=== PATIENT | female | born 1980 | race Caucasian/White ===

== ENCOUNTER 2020-02-27 12:27 | Emergency (ER) | payer BC ==
--- NOTE | 2020-02-27 12:31 | PDOC ---
History of Present Illness - General Chief Complaint: Pain Stated Complaint: ABD PAIN Time Seen by Provider: 02/27/20 12:31 History Source: Patient Exam Limitations: Language Barrier (khmer, used house designer) - History of Present Illness Initial Comments: 02/27/20 13:07 HPI: This is a 39 y/o female with a PMH of anemia and gastritis non-compliant with medication presenting to the ED because of burning/sharp epigastric pain radiating to her left chest and left arm accompanied by left arm numbness. The pain has been occurring every day for the past 6 weeks, and starts in the morning. The pain is worse after she eats, and she hasn't been eating as a result. She saw a GI but doesn't remember who it was, and says she stopped taking the medication because she couldn't afford it. The pain is accompanied by a headache, nausea, no vomiting and her last bowel movement was yesterday. She denies lightheadedness, diarrhea, constipation, or diaphoresis. ROS: GENERAL/CONSTITUTIONAL: No fever/chills. No weakness. HEAD, EYES, EARS, NOSE AND THROAT: No change in vision. No ear pain or discharge. No sore throat. CARDIOVASCULAR: Yes chest pain or shortness of breath. RESPIRATORY: No cough, wheezing, or hemoptysis. GASTROINTESTINAL: Yes nausea. No vomiting, diarrhea or constipation. GENITOURINARY: Yes dysuria, frequency, or change in urination. MUSCULOSKELETAL: Pain in between her shoulder blades NEUROLOGIC: Yes headache. Yes numbness in her left arm. HEMATOLOGIC/LYMPHATIC: Yes anemia. No history of blood clots. PMH: Gastritis, anemia PSx: , tubal ligation Social Hx: Denied tobacco, daily wine, and has been taking sips of moonshine for her abdominal pain Meds: Denied Allergies: Denied PE: GENERAL: Awake, alert, and fully oriented, laying in bed in some distress holding her stomach. HEAD: No signs of trauma EYES: PERRL, EOMI ENT: Nares patent, Moist mucosa NECK: Normal ROM, supple, no lymphadenopathy, JVD, or masses LUNGS: Breath sounds equal, clear to auscultation bilaterally. No wheezes, and no crackles HEART: Regular rate and rhythm, normal S1 and S2, no murmurs, rubs or gallops ABDOMEN: Soft, tender in epigastric region and RUQ, normoactive bowel sounds. No guarding, no rebound. No masses EXTREMITIES: Normal range of motion, no edema. No clubbing or cyanosis. No cords, erythema, or tenderness NEUROLOGICAL: Cranial nerves II through XII grossly intact. Normal speech. No weakness or loss of sensation in bilateral arms and legs. SKIN: Warm, Dry, normal turgor, no rashes or lesions noted. 02/27/20 13:20 MDM: This is a 39 y/o female with a PMH of gastritis non-compliant with medication presenting to the ED because of burning/sharp epigastric pain radiating to her left chest and left arm accompanied by left arm numbness. ddx: r/o acs vs gastritis vs pancreatitis vs biliary vs peptic ulcer - Pain lasts for hours and has been everyday for 6 weeks so less likely cardiac. Will get a troponin - No focal neurological deficits - Acetaminophen for headache, zofran for nausea, famotidine and Maalox for deanna ritis - CBC - CMP - lipase - CXR - UA 02/27/20 15:05 CBC WBC 4.2 K/mm3 (4.0-10.0) 02/27/20 12:51 RBC 3.60 M/mm3 (3.60-5.2) 02/27/20 12:51 Hgb 10.1 GM/dL (10.7-15.3) L 02/27/20 12:51 Hct 31.8 % (32.4-45.2) L 02/27/20 12:51 MCV 88.4 fl (80-96) 02/27/20 12:51 MCH 28.2 pg (25.7-33.7) 02/27/20 12:51 MCHC 31.9 g/dl (32.0-36.0) L 02/27/20 12:51 RDW 13.6 % (11.6-15.6) 02/27/20 12:51 Plt Count 238 K/MM3 (134-434) 02/27/20 12:51 MPV 8.2 fl (7.5-11.1) 02/27/20 12:51 Absolute Neuts (auto) 2.5 K/mm3 (1.5-8.0) 02/27/20 12:51 Neutrophils % 59.8 % (42.8-82.8) 02/27/20 12:51 Lymphocytes % 25.8 % (8-40) 02/27/20 12:51 Monocytes % 8.6 % (3.8-10.2) 02/27/20 12:51 Eosinophils % 4.1 % (0-4.5) 02/27/20 12:51 Basophils % 1.7 % (0-2.0) 02/27/20 12:51 Nucleated RBC % 0 % (0-0) 02/27/20 12:51 No leukocytosis. Known anemia. CMP Sodium 137 mmol/L (136-145) 02/27/20 12:51 Potassium 3.9 mmol/L (3.5-5.1) 02/27/20 12:51 Chloride 103 mmol/L (98-107) 02/27/20 12:51 Carbon Dioxide 24 mmol/L (21-32) 02/27/20 12:51 Anion Gap 10 MMOL/L (8-16) 02/27/20 12:51 BUN 9.3 mg/dL (7-18) 02/27/20 12:51 Creatinine 0.5 mg/dL (0.55-1.3) L 02/27/20 12:51 Est GFR (CKD-EPI)AfAm 139.33 02/27/20 12:51 Est GFR (CKD-EPI)NonAf 120.22 02/27/20 12:51 Random Glucose 85 mg/dL (74-106) 02/27/20 12:51 Calcium 9.4 mg/dL (8.5-10.1) 02/27/20 12:51 Total Bilirubin 1.0 mg/dL (0.2-1) 02/27/20 12:51 AST 165 U/L (15-37) H 02/27/20 12:51 ALT 80 U/L (13-61) H 02/27/20 12:51 Alkaline Phosphatase 72 U/L (45-117) 02/27/20 12:51 Troponin I < 0.02 ng/ml (0.00-0.05) 02/27/20 12:51 Total Protein 7.4 g/dl (6.4-8.2) 02/27/20 12:51 Albumin 4.0 g/dl (3.4-5.0) 02/27/20 12:51 Lipase 95 U/L (73-393) 02/27/20 12:51 Serum , Qual Negative 02/27/20 12:51 Troponin negative Elevated liver enzymes. AST>ALT - Likely due to hx of frequent Urine Test Results Urine Color Yellow 02/27/20 15:20 Urine Appearance Clear 02/27/20 15:20 Urine pH >= 9.0 (5.0-8.0) H 02/27/20 15:20 Ur Specific [place] 1.022 (1.010-1.035) 02/27/20 15:20 Urine Protein Negative (NEGATIVE) 02/27/20 15:20 Urine Glucose (UA) Negative (NEGATIVE) 02/27/20 15:20 Urine Ketones 2+ (NEGATIVE) H 02/27/20 15:20 Urine Blood Negative (NEGATIVE) 02/27/20 15:20 Urine Nitrite Negative (NEGATIVE) 02/27/20 15:20 Urine Bilirubin Negative (NEGATIVE) 02/27/20 15:20 Ur Leukocyte Esterase Negative (NEGATIVE) 02/27/20 15:20 No sign of infection - Pt symptoms impoved with Maalox, famotidine, acetaminophen and zofram - Will follow-up with her GI as an outpatient - She understand the return precautions. Past History - Medical History Allergies/Adverse Reactions: Allergies Allergy/AdvReac Type Severity Reaction Status Date / Time No Known Allergies Allergy Verified 02/27/20 12:54 Heart Score/ECG Review - History History: Slightly suspicious - Electrocardiogram EKG: Normal - Age Age: </= 45 - Risk Factors Based on the list above the patient has:: No risk factors known - ECG Intrepretation Comment:: 02/27/20 13:[address] elevations or T wave inversions. Normal sinus rhythm. Vent rate 73bpm, ME interval 122ms, QRS duration 86ms, QT/QTc 418/460ms. Unchanged from EKG 1.5 hours prior at [facility]. ED Treatment Course - LABORATORY CBC & Chemistry Diagram: 02/27/20 12:51 02/27/20 12:51 Discharge - Discharge Information Problems reviewed: Yes Clinical Impression/Diagnosis: Chest discomfort, Epigastric abdominal pain Abdominal pain Qualifiers: Abdominal location: epigastric Qualified Code(s): R10.13 - Epigastric pain Condition: Improved Disposition: HOME - Admission No - Follow up/Referral - Patient Discharge Instructions Patient Printed Discharge Instructions: DI for Gastritis Additional Instructions: You were seen in the ED today because of abdominal pain. We gave you fluids, pepcid, zofran, and maalox and your symptoms improved. Follow-up with your server administrator in the next week. We advise stopping any alcohol as it is probably making your symptoms worse. What you can do at home: You can take over the counter Pepcid 10mg twice a day as needed. You can take over the counter Maalox 10-20ml 4x per day with a maximum of 80mL per 24 hours. Please return to the ED if you start vomiting and cannot keep fluids down, if your pain gets worse, or if you have any new or concerning symptoms. - Post Discharge Activity
[2020-02-27 12:54] VITALS: BMI 23.3
[2020-02-27] MEDS ORDERED: FAMOTIDINE 20 MG/50 ML IVPB 20 MG/50 ML MG IVPB ONE ×2 (12:55→14:02)
[2020-02-27] MEDS ORDERED: ONDANSETRON 4 MG/2 ML VIAL IVPUSH ONE (12:55)
[2020-02-27] MEDS ORDERED: ACETAMINOPHEN 1000 MG/100 ML VIAL (NON FORMULARY) IVPB ONE (12:55)
[2020-02-27] MEDS ORDERED: SODIUM CHLORIDE 0.9% 500 ML INFUS.BAG IV ONE (12:55)
[2020-02-27] MEDS ORDERED: MAG HYDROX/AL HYDROX/SIMETH 30 ML UNIT-DOSE CUP PO ONE (12:56)
[2020-02-27 13:28] LABS: BASO % 1.7 % (0-2.0); EOS % 4.1 % (0-4.5); HEMATOCRIT 31.8 % (32.4-45.2); HEMOGLOBIN 10.1 GM/dL (10.7-15.3); LYMPH % 25.8 % (8-40); MCH 28.2 pg (25.7-33.7); MCHC 31.9 g/dl (32.0-36.0); MEAN CELL VOLUME 88.4 fl (80-96); MEAN PLT VOLUME 8.2 fl (7.5-11.1); MONO % 8.6 % (3.8-10.2); NEUT % 59.8 % (42.8-82.8); PLATELET COUNT 238 K/MM3 (134-434); RDW 13.6 % (11.6-15.6); WHITE BLOOD COUNT 4.2 K/mm3 (4.0-10.0)
[2020-02-27] MEDS ORDERED: ACETAMINOPHEN INJECTION 100 ML IVPB ONE (14:02)
[2020-02-27] MEDS ORDERED: MAG HYDROX/AL HYDROX/SIMETH 30 ML UNIT-DOSE CUP ONE (14:02)
[2020-02-27 14:39] LABS: ALK PHOS 72 U/L (45-117); ANION GAP 10 MMOL/L (8-16); BLOOD UREA NITROGEN 9.3 mg/dL (7-18); CALCIUM 9.4 mg/dL (8.5-10.1); CHLORIDE 103 mmol/L (98-107); CO2 24 mmol/L (21-32); CREATININE 0.5 mg/dL (0.55-1.3); GLUCOSE,RANDOM 85 mg/dL (74-106); LIPASE 95 U/L (73-393); POTASSIUM 3.9 mmol/L (3.5-5.1); SGOT/AST 165 U/L (15-37); SGPT/ALT 80 U/L (13-61); SODIUM 137 mmol/L (136-145); TOT PROT 7.4 g/dl (6.4-8.2)
[2020-02-27 15:37] LABS: PH,URINE >= 9.0 (5.0-8.0); URINE APPEARANCE CLEAR; URINE BILIRUBIN NEGATIVE (NEGATIVE); URINE COLOR YELLOW; URINE GLUCOSE (UA) NEGATIVE (NEGATIVE); URINE KETONE 2+ (NEGATIVE); URINE LEUK ESTERASE NEGATIVE (NEGATIVE); URINE NITRITE NEGATIVE (NEGATIVE); URINE PROTEIN NEGATIVE (NEGATIVE)
[2020-02-27 16:39] VITALS: BP 127/68; PULSE 71; TEMP 98
--- NOTE | 2020-02-27 17:55 | PDOC ---
Documentation entered by Martha Solis SCRIBE, acting as scribe for Kendall Arias MD. Kendall Arias MD: This documentation has been prepared by the kalebeIrma Sydney, SCRIBE, under my direction and personally reviewed by me in its entirety. I confirm that the documentation accurately reflects all work, treatment, procedures, and medical decision making performed by me. Attending Attestation - Resident Resident Name: Dara Cisneros - ED Attending Attestation I have performed the following: I have examined & evaluated the patient, The case was reviewed & discussed with the resident, I agree w/resident's findings & plan, Exceptions are as noted - HPI HPI: 02/27/20 13:28 Patient is a 39 year old female with a significant past medical history of gastritis (non-compliant with medication) who presents to the ED with six weeks of epigastric pain. As per patient, her burning epigastric pain radiates to her left chest, arm, and a/w nausea. Patient notes her symptoms have been occurring every morning for the last six weeks, but then resolve over the course of the day. Patient states she has seen a senior systems engineer in the past, who prescribes her medication, but she has not been taking the medication. Pt notably has been taking moonshine as a medication for her pain as this is an swedish treatment. Denies dizziness, focal weakness/numbness, headache, shortness of breath, vomiting, diarrhea, constipation, or urinary changes. Allergies: NKDA - Physicial Exam PE: 02/27/20 16:38 GENERAL: Awake, alert, and fully oriented, in no acute distress EYES: PERRLA, EOMI, sclera anicteric, conjunctiva clear ENT: Oropharynx clear without exudates. Moist mucosa NECK: Normal ROM, supple, no lymphadenopathy, JVD, or masses LUNGS: Breath sounds equal, clear to auscultation bilaterally. No wheezes, and no crackles HEART: Regular rate and rhythm, normal S1 and S2, no murmurs, rubs or gallops ABDOMEN: Soft, nontender, normoactive bowel sounds. No guarding, no rebound. No masses EXTREMITIES: Normal range of motion, no edema. No clubbing or cyanosis. No cords, erythema, or tenderness NEUROLOGICAL: Normal speech, cranial nerves intact, equal strength and sensation b/l SKIN: Warm, Dry, normal turgor, no rashes or lesions noted. - Medical Decision Making 02/27/20 14:38 39-year-old female presents emergency department with 6 weeks of intermittent epigastric pain, burning in quality associated with intermittent radiation up the chest. Patient initially stating that pain radiates to her left arm, however on clarification she denies. She has not tried any medications. Vitals within normal limits. Exam within normal limits with no abdominal tenderness palpation. EKG is nonischemic. Differential includes gastritis versus GERD versus pancreatitis versus atypical ACS. Labs wnl. Pt reports pain has completely resolved with GI cocktail. She requests DC home Patient is clinically well-appearing. I discussed the physical exam findings, ancillary test results and final diagnoses with the patient. I answered all of the patient's questions. The patient was satisfied with the care received and felt comfortable with the discharge plan and treatment plan. The patient will call their primary care physician within 24 hours to arrange follow-up and will return to the Emergency Department with any new, persistent or worsening symptoms. Discharge - Discharge Information Problems reviewed: Yes Clinical Impression/Diagnosis: Chest discomfort, Epigastric abdominal pain Abdominal pain Qualifiers: Abdominal location: epigastric Qualified Code(s): R10.13 - Epigastric pain Condition: Improved Disposition: HOME - Follow up/Referral - Patient Discharge Instructions Patient Printed Discharge Instructions: DI for Gastritis Additional Instructions: You were seen in the ED today because of abdominal pain. We gave you fluids, pepcid, zofran, and maalox and your symptoms improved. Follow-up with your senior systems engineer in the next week. We advise stopping any alcohol as it is probably making your symptoms worse. What you can do at home: You can take over the counter Pepcid 10mg twice a day as needed. You can take over the counter Maalox 10-20ml 4x per day with a maximum of 80mL per 24 hours. Please return to the ED if you start vomiting and cannot keep fluids down, if your pain gets worse, or if you have any new or concerning symptoms. - Post Discharge Activity
--- NOTE | 2020-02-28 10:45 | EKG ---
Test Reason : Blood Pressure : / mmHG Vent. Rate : 073 BPM Atrial Rate : 073 BPM P-R Int : 122 ms QRS Dur : 086 ms QT Int : 418 ms P-R-T Axes : 063 013 038 degrees QTc Int : 460 ms NORMAL SINUS RHYTHM NORMAL ECG NO PREVIOUS ECGS AVAILABLE Confirmed by Rebel Gonzalez ([id number]) on 02/28/2020 10:45:00 AM Referred By: Confirmed By:Rebel Gonzalez
== END 2020-02-27 16:40 | disposition home or self-care (01) ==
LOC: JER 12:27
PROC: 3E0333Z Introduction of Anti-inflammatory into Peripheral Vein, Percutaneous Approach (ICD-10-PCS; principal; 2020-02-27)
PROC: 3E033GC Introduction of Other Therapeutic Substance into Peripheral Vein, Percutaneous Approach (ICD-10-PCS; 2020-02-27)
DX: R10.13 Epigastric pain (principal); R07.9 Chest pain, unspecified
CPT/HCPCS: 36415; 71045-TC-FY; 80053; 81003; 83690; 84484; 84703; 85025; 87077; 87086; 87186; 93005; 93010; 99285-25; J0131

== ENCOUNTER 2020-04-03 15:04 | Emergency (ER) | payer BC ==
[2020-04-03 15:14] VITALS: BP 123/77; PULSE 77; BMI 18.6
--- NOTE | 2020-04-03 16:09 | PDOC ---
History of Present Illness - General Chief Complaint: Pain Stated Complaint: ABD PAIN Time Seen by Provider: 04/03/20 15:50 History Source: Patient Exam Limitations: No Limitations Past History - Travel History Traveled outside of the country in the last 30 days: No Close contact w/someone who was outside of country & ill: No - Medical History Allergies/Adverse Reactions: Allergies Allergy/AdvReac Type Severity Reaction Status Date / Time No Known Allergies Allergy Verified 04/03/20 15:10 Home Medications: Ambulatory Orders NK [No Known Home Medication] 04/03/20 COPD: No GI Disorders: Yes (gerd) - Reproductive History Is Patient Now?: No - Psycho-Social/Smoking History Smoking History: Never smoked Review of Systems - Review of Systems Able to Perform ROS?: Yes Comments:: 04/03/20 19:06 CONSTITUTIONAL: Absent: fever, chills, diaphoresis, generalized weakness, malaise, loss of appetite HEENT: Absent: rhinorrhea, nasal congestion, throat pain, throat swelling, difficulty swallowing, mouth swelling, ear pain, eye pain, visual Changes CARDIOVASCULAR: Absent: chest pain, loss of consciousness, palpitations, irregular heart rate, peripheral edema RESPIRATORY: Absent: cough, shortness of breath, dyspnea with exertion, orthopnea, wheezing, stridor, hemoptysis GASTROINTESTINAL: Present: R sided abdominal pain Absent: abdominal distension, nausea, vomiting, diarrhea, constipation, melena, hematochezia GENITOURINARY: Absent: dysuria, frequency, urgency, hesitancy, hematuria, flank pain, genital pain MUSCULOSKELETAL: Absent: myalgia, arthralgia, joint swelling SKIN: Absent: rash, itching, pallor HEMATOLOGIC/IMMUNOLOGIC: Absent: easy bleeding, easy bruising, lymphadenopathy, frequent infections ENDOCRINE: Absent: unexplained weight gain, unexplained weight loss, heat intolerance, cold intolerance NEUROLOGIC: Absent: headache, focal weakness or paresthesias, dizziness, unsteady gait, seizure, mental status changes, bladder or bowel incontinence PSYCHIATRIC: Absent: anxiety, depression, suicidal or homicidal ideation, hallucinations. Is the patient limited Serbian proficient: No *Physical Exam - Vital Signs Last Vital Signs Temp Pulse Resp BP Pulse Ox 77 18 123/77 99 04/03/20 15:06 04/03/20 15:06 04/03/20 15:06 04/03/20 15:06 - Physical Exam 04/03/20 19:07 GENERAL: Well developed, well nourished. Awake and alert. No acute distress. HEENT: Normocephalic, atraumatic. PERRLA, EOMI. No conjunctival pallor. Sclera are non- icteric. Moist mucous membranes. Oropharynx is clear. NECK: Supple. Full ROM. No lymphadenopathy. CARDIOVASCULAR: Regular rate and rhythm. Distal pulses are 2+ and symmetric. PULMONARY: No evidence of respiratory distress. Lungs clear to auscultation bilaterally. No wheezing, rales or rhonchi. ABDOMINAL: Soft. Non-tender. Non-distended. No rebound or guarding. No organomegaly. Norm oactive bowel sounds. MUSCULOSKELETAL Normal range of motion at all joints. No bony deformities or tenderness. No CVA tenderness. EXTREMITIES: No cyanosis. No clubbing. No edema. No calf tenderness. SKIN: Warm and dry. Normal capillary refill. No rashes. No jaundice. NEUROLOGICAL: Alert, awake, appropriate. Cranial nerves 2-12 intact. No deficits to light touch and temperature in face, upper extremities and lower extremities. No motor deficits in the in face, upper extremities and lower extremities. Normoreflexic in the upper and lower extremities. Normal speech. Toes are down-going bila terally. Gait is normal without ataxia. PSYCHIATRIC: Cooperative. Good eye contact. Appropriate mood and affect. Pelvic: External genitalia normal without lesions. Vaginal vault is clear without blood or discharge. Cervix is long and closed. Red ring noted on the cervix No cervical motion tenderness. Uterus is nontender and normal in size. Adnexa on L side tender, no R sided tenderness. ED Treatment Course - LABORATORY CBC & Chemistry Diagram: 04/03/20 17:05 04/03/20 17:05 Medical Decision Making - Medical Decision Making 04/03/20 19:08 Patient is a 39-year-old female with past medical history of kidney stones, presents the ER with right lower quadrant pain. She states that this problem is going on for the last 2 weeks. She states she was seen in our emergency dep artment and diagnosed with gastritis. She was also seen 2 days ago months of your also diagnosed with gastritis. She states that her right lower quadrant pain has gotten worse over the past week so she came to the ER for reevaluation. Denies fevers, chills, nausea, vomiting, dysuria, hematuria. Her last menstrual cycle ended on February 22. A/P: Right lower quadrant pain On physical exam patient is tender to the right lower quadrant however she also has pain in the abdomen. No Rovsing sign. Pelvic exam shows some left adnexal tenderness. There is also a red ring around the cervix. Genital culture taken. Basic labs show no leukocytosis. CMP within normal limits. Urine is clear. Transvaginal ultrasound ordered. We will repeat a CT scan as patient has worsening right lower quadrant tende rness. Disposal depending on imaging. Signout given to CATRACHITA Xiao. Discharge - Discharge Information Problems reviewed: Yes Clinical Impression/Diagnosis: Abdominal pain Qualifiers: Abdominal location: lower abdomen, unspecified Qualified Code(s): R10.30 - Lower abdominal pain, unspecified Ovarian cyst Qualifiers: Laterality: left Qualified Code(s): N83.202 - Unspecified ovarian cyst, left side Condition: Stable Disposition: HOME - Follow up/Referral Referrals: Pancho Garcia MD [Staff Physician] - Call tomorrow Maynor Escalona MD [Staff Physician] - Call tomorrow - Patient Discharge Instructions Patient Printed Discharge Instructions: DI for Abdominal Pain-Adult Additional Instructions: Please follow-up with a golf manager as soon as possible Please also follow-up with the physical design engineer as soon as possible Take ibuprofen every 6 hours as needed for pain Drink plenty of fluids. Return to the emergency room for any worsening symptoms - Post Discharge Activity Work/Back to School Note: Back to Work
[2020-04-03] MEDS ORDERED: ACETAMINOPHEN 1000 MG/100 ML VIAL (NON FORMULARY) IVPB ONE (16:10)
[2020-04-03] MEDS ORDERED: ONDANSETRON 4 MG/2 ML VIAL IVPUSH ONE (16:10)
[2020-04-03] MEDS ORDERED: SODIUM CHLORIDE 1,000 ML IV STA (16:10)
[2020-04-03] MEDS ORDERED: ACETAMINOPHEN INJECTION 100 ML IVPB ONE (16:35)
[2020-04-03 17:29] LABS: BASO % 1.3 % (0-2.0); HEMATOCRIT 32.3 % (32.4-45.2); HEMOGLOBIN 10.4 GM/dL (10.7-15.3); LYMPH % 36.7 % (8-40); MCH 27.4 pg (25.7-33.7); MCHC 32.3 g/dl (32.0-36.0); MEAN CELL VOLUME 84.9 fl (80-96); MEAN PLT VOLUME 9.2 fl (7.5-11.1); MONO % 6.8 % (3.8-10.2); NEUT % 47.2 % (42.8-82.8); PLATELET COUNT 184 K/MM3 (134-434); RBC 3.81 M/mm3 (3.60-5.2); WHITE BLOOD COUNT 5.4 K/mm3 (4.0-10.0)
[2020-04-03 17:35] LABS: INR 0.99 (0.83-1.09); PROTHROMBIN TIME (PATIENT) 11.7 SEC (9.7-13.0)
[2020-04-03 17:51] LABS: BILIRUBIN,TOTAL 0.4 mg/dL (0.2-1); BLOOD UREA NITROGEN 8.7 mg/dL (7-18); CALCIUM 8.9 mg/dL (8.5-10.1); CREATININE 0.6 mg/dL (0.55-1.3); POTASSIUM 3.9 mmol/L (3.5-5.1); TOT PROT 7.4 g/dl (6.4-8.2)
[2020-04-03 18:38] LABS: HCG,QUALITATIVE URINE Negative
[2020-04-03 18:49] LABS: PH,URINE 8.5 (5.0-8.0); URINE APPEARANCE Clear; URINE BILIRUBIN Negative (NEGATIVE); URINE COLOR Yellow; URINE GLUCOSE (UA) Negative (NEGATIVE); URINE KETONE Negative (NEGATIVE); URINE LEUK ESTERASE Negative (NEGATIVE); URINE NITRITE Negative (NEGATIVE); URINE PROTEIN Negative (NEGATIVE); URINE UROBILINOGEN 0.2 mg/dL (0.2-1.0)
--- NOTE | 2020-04-03 19:43 | PDOC ---
*Physical Exam - Vital Signs Last Vital Signs Temp Pulse Resp BP Pulse Ox 77 18 123/77 99 04/03/20 15:06 04/03/20 15:06 04/03/20 15:06 04/03/20 15:06 - Physical Exam General Appearance: Yes: Appropriately Dressed ED Treatment Course - LABORATORY CBC & Chemistry Diagram: 04/03/20 17:05 04/03/20 17:05 - ADDITIONAL ORDERS Additional order review: Laboratory Results 04/03/20 04/03/20 04/03/20 17:05 17:05 17:05 PT with INR 11.70 INR 0.99 Sodium 138 Potassium 3.9 Chloride 105 Carbon Dioxide 27 Anion Gap 7 L BUN 8.7 Creatinine 0.6 Est GFR (CKD-EPI)AfAm 131.22 Est GFR (CKD-EPI)NonAf 113.22 Random Glucose 88 Calcium 8.9 Total Bilirubin 0.4 AST 30 ALT 21 Alkaline Phosphatase 56 Total Protein 7.4 Albumin 4.0 Urine Color Urine Appearance Urine pH Ur Specific [place] Urine Protein Urine Glucose (UA) Urine Ketones Urine Blood Urine Nitrite Urine Bilirubin Urine Urobilinogen Ur Leukocyte Esterase Urine HCG, Qual Blood Type O POSITIVE Antibody Screen Negative 04/03/20 17:03 PT with INR INR Sodium Potassium Chloride Carbon Dioxide Anion Gap BUN Creatinine Est GFR (CKD-EPI)AfAm Est GFR (CKD-EPI)NonAf Random Glucose Calcium Total Bilirubin AST ALT Alkaline Phosphatase Total Protein Albumin Urine Color Yellow Urine Appearance Clear Urine pH 8.5 H Ur Specific [place] 1.020 Urine Protein Negative Urine Glucose (UA) Negative Urine Ketones Negative Urine Blood Negative Urine Nitrite Negative Urine Bilirubin Negative Urine Urobilinogen 0.2 Ur Leukocyte Esterase Negative Urine HCG, Qual Negative Blood Type Antibody Screen 04/03/20 17:05 RBC 3.81 MCV 84.9 MCHC 32.3 RDW 14.0 MPV 9.2 D Neutrophils % 47.2 D Lymphocytes % 36.7 D Monocytes % 6.8 Eosinophils % 8.0 H D Basophils % 1.3 - Medications Given in the ED: ED Medications Discontinued Medications Generic Name Dose Route Start Last Admin Trade Name Freq PRN Reason Stop Dose Admin Acetaminophen 1,000 mg 04/03/20 16:10 04/03/20 17:08 Ofirmev Injection - IVPB 04/03/20 16:11 1,000 mg ONCE ONE Administration Sodium Chloride 1,000 mls @ 1,000 mls/hr 04/03/20 16:10 04/03/20 17:08 Normal Saline - IV 04/03/20 17:09 1,000 mls/hr ASDIR STA Administration Ondansetron HCl 4 mg 04/03/20 16:10 04/03/20 17:08 Zofran Injection IVPUSH 04/03/20 16:11 4 mg ONCE ONE Administration Medical Decision Making - Medical Decision Making 04/03/20 21:28 CAT scan shows normal appendix with left ovarian cyst. Normal stool burden. No other acute findings. Will give referral to patient to follow-up with GI and TRAFFIC TECHNICIAN. With strict return precautions. Discharge - Discharge Information Problems reviewed: Yes Clinical Impression/Diagnosis: Abdominal pain Qualifiers: Abdominal location: lower abdomen, unspecified Qualified Code(s): R10.30 - Lo wer abdominal pain, unspecified Ovarian cyst Qualifiers: Laterality: left Qualified Code(s): N83.202 - Unspecified ovarian cyst, left side Disposition: HOME - Follow up/Referral Referrals: Maynor Escalona MD [Staff Physician] - Call tomorrow Pancho Garcia MD [Staff Physician] - Call tomorrow - Patient Discharge Instructions Patient Printed Discharge Instructions: DI for Abdominal Pain-Adult Additional Instructions: Please follow-up with a sanitary landfill operator as soon as possible Please also follow-up with the bobbin hauler as soon as possible Take ibuprofen every 6 hours as needed for pain Drink plenty of fluids. Return to the emergency room for any worsening symptoms - Post Discharge Activity Work/Back to School Note: Back to Work
[2020-04-03] MEDS ORDERED: KETOROLAC TROMETHAMINE 30 MG/1 ML VIAL IVPUSH ONE (21:27)
[2020-04-03] MEDS ORDERED: KETOROLAC TROMETHAMINE 30 MG/1 ML VIAL ONE (21:55)
== END 2020-04-03 22:15 | disposition home or self-care (01) ==
LOC: JER 15:04
PROC: 3E0333Z Introduction of Anti-inflammatory into Peripheral Vein, Percutaneous Approach (ICD-10-PCS; principal; 2020-04-03)
PROC: 3E033GC Introduction of Other Therapeutic Substance into Peripheral Vein, Percutaneous Approach (ICD-10-PCS; 2020-04-03)
PROC: 3E0337Z Introduction of Electrolytic and Water Balance Substance into Peripheral Vein, Percutaneous Approach (ICD-10-PCS; 2020-04-03)
DX: R10.30 Lower abdominal pain, unspecified (principal); N83.202 Unspecified ovarian cyst, left side
CPT/HCPCS: 36415; 74177-TC; 76830-TC; 80053; 81003; 84703; 85025; 85610; 86850; 86900; 86901; 87070; 87086; 87205; 99285-25; J0131; Q9967